=== PATIENT | male | born 1975 | race Caucasian/White ===

== ENCOUNTER 2017-07-05 10:41 | Day surgery (SDC) | payer OTHER ==
[2017-07-04 12:22] VITALS: BMI 25.7
[2017-07-05] MEDS ORDERED: MIDAZOLAM HCL 2 MG/2 ML SINGLE DOSE VIAL ONE (11:47)
[2017-07-05] MEDS ORDERED: ROCURONIUM BROMIDE 50 MG/5 ML VIAL ONE (11:47)
[2017-07-05] MEDS ORDERED: PROPOFOL 20 ML ONE (11:47)
--- NOTE | 2017-07-05 11:56 | HP ---
Satellite PMH - Chief Complaint History of Present Illness: 41 year old man with ESRD on HD wishes to transition to peritoneal dialysis. No prior abdominal surgery. History Source: Patient Limitations to Obtaining History: No Limitations - Past Medical History Allergies/Adverse Reactions: Allergies Allergy/AdvReac Type Severity Reaction Status Date / Time No Known Allergies Allergy Verified 07/04/17 12:22 Cardiovascular: Yes: HTN Renal/: Yes: Renal Failure, Hemodialysis - Current Medications Current Medications: Home Medications Medication Instructions Recorded Allopurinol [Zyloprim -] 200 mg PO BID 07/04/17 Atorvastatin Ca [Lipitor] 20 mg PO DAILY 07/04/17 B12/Levomefolate Calcium/B-6 1 each PO DAILY 07/04/17 [Foltx Tablet] Calcitriol [Rocaltrol -] 0.25 mcg PO ASDIR 07/04/17 Cholecalciferol (Vitamin D3) 2,000 unit PO DAILY 07/04/17 [Vitamin D] Fenofibrate Nanocrystallized 48 mg PO DAILY 07/04/17 [Tricor] Labetalol HCl [Normodyne -] 400 mg PO BID 07/04/17 Olmesartan Medoxomil [Benicar] 20 mg PO BID 07/04/17 Lamont-3 Fatty Acids/Fish Oil [Fish 1 tab PO DAILY 07/04/17 Oil 1,000 mg Capsule] Patiromer Calcium Sorbitex 25.2 gm PO BID 07/04/17 [Veltassa] Sevelamer Carbonate [Renvela] 2,400 mg PO CM 07/04/17 Sodium Bicarbonate 1,950 mg PO TID 07/04/17 Satellite Physical Exam - Physical Examination Vital Signs: Vital Signs Period Temp Pulse Resp BP Sys/Gonzalez Pulse Ox Last 24 Hr 98.9 F 78 20 115/60 98 General Appearance: Well Nourished, Well Developed ENT: Clear Lung: Clear to auscultation Heart: Regular rate & rhythm Abdomen: Soft, No tenderness Extremities: No edema, Other (Left arm fistula) Satellite Impression/Plan - Impression/Plan Impression: Renal failure. Operative Procedure: Placement peritoneal dialysis catheter. Laparoscopy. Date to be Performed: 07/05/17
[2017-07-05] MEDS ORDERED: ceFAZolin SODIUM 1 GM VIAL ONE (12:30)
[2017-07-05] MEDS ORDERED: DEXAMETHASONE SOD PHOSPHATE 4 MG/1 ML VIAL ONE (12:50)
[2017-07-05] MEDS ORDERED: NEOSTIGMINE METHYLSULFATE 0.5 MG/ML - 10 ML MDV ONE (13:03)
[2017-07-05] MEDS ORDERED: ACETAMINOPHEN 325 MG TABLET (FP) PO PRN (13:09)
[2017-07-05] MEDS ORDERED: oxyCODONE HCL 5 MG TABLET PO PRN (13:09)
--- NOTE | 2017-07-05 13:09 | OP ---
Operative Note - Note: Operative Date: 07/05/17 Pre-Operative Diagnosis: ESRD on HD Operation: Laparoscopy, Placement Peritoneal Dialysis Catheter Findings: No intra-abdominal adhesions Implants: [place] neck right, curled double cuff Tenckhoff catheter Post-Operative Diagnosis: Same as Pre-op Surgeon: Jaime Frances Anesthesiologist/ELECTRIC ENGINE MECHANIC: Dillan Brewster Anesthesia: General Estimated Blood Loss (mls): 0 Operative Report Dictated: Yes
[2017-07-05] MEDS ORDERED: ONDANSETRON 4 MG/2 ML VIAL ONE (13:16)
[2017-07-05] MEDS ORDERED: ONDANSETRON 4 MG/2 ML VIAL IVPUSH PRN (13:23)
[2017-07-05] MEDS ORDERED: PROMETHAZINE HCL 25 MG/1 ML VIAL IVPB PRN (13:23)
[2017-07-05] MEDS ORDERED: SODIUM CHLORIDE 1,000 ML IV SCH (13:30)
[2017-07-05 16:36] VITALS: TEMP 97.8
[2017-07-05 16:45] VITALS: BP 130/78; PULSE 67
--- NOTE | 2017-07-06 07:12 | OP ---
DATE OF OPERATION: 07/05/2017 SURGEON: Jaime Posada MD PROCEDURE: Laparoscopy with placement of peritoneal dialysis catheter. PREOPERATIVE DIAGNOSIS: End-stage renal disease. POSTOPERATIVE DIAGNOSIS: End-stage renal disease. ANESTHESIA: General. ANESTHESIOLOGIST: Dillan Brewster MD OPERATIVE FINDINGS: The peritoneal cavity was free of intraabdominal adhesions. OPERATIVE PROCEDURE: Following routine patient identification with site and side verification, general anesthesia was induced. The abdomen was prepped with ChloraPrep. Time-out was performed. A Veress needle was inserted atraumatically through the umbilicus into the peritoneal cavity, and pneumoperitoneum was established with carbon dioxide to 15 mmHg pressure. Marcaine 0.5% was infiltrated in the midline above the umbilicus, and a 5-mm incision made. A 5-mm OptiPort was placed under direct vision into the peritoneal cavity. A 5-mm angled laparoscope was then used to explore the abdomen as noted above. Additional Marcaine was infiltrated above and to the left of the umbilicus, and an 8-mm incision made. An 8-mm bladeless trocar was then advanced to the underside of the parietal peritoneum, and then directed towards the pelvis where it entered the peritoneal cavity at the top of the true pelvis. A curled swan-neck double-cuff takeoff catheter was then straightened and passed through the 8-mm port and deployed into the pelvis. The port was removed. The inner cuff was left just deep to the fascia. The other end of the tubing was attached to a curved metal tunneler, which was passed into subcutaneous plane to exit the skin in the right lower quadrant at the previously marked site. The Luer-Omi adapter was attached, and 1 L of saline was run into the peritoneal cavity under gravity drainage in 3 minutes and 15 seconds. The fluid was then allowed to drain out under gravity until only 300 mL was left in the peritoneal cavity. The catheter was capped. All ports were removed. The wounds were closed subcutaneous sutures of 3-0 Vicryl and subcuticular sutures of 4-0 Biosyn on the skin. Sterile dressings were applied with Dermabond glue. The catheter was dressed with a Biopatch Bioclusive dressing and ABD pad. The patient was then taken to the recovery room in stable condition. JAIME POSADA M.D. [id number]
== END 2017-07-05 16:05 | disposition home or self-care (01) ==
LOC: JASU-SURG 10:41
PROVIDERS: ATTEND Surgery
PROC: 0WHG43Z Insertion of Infusion Device into Peritoneal Cavity, Percutaneous Endoscopic Approach (ICD-10-PCS; principal; 2017-07-05 12:00)
DX: I12.0 Hypertensive chronic kidney disease with stage 5 chronic kidney disease or end stage renal disease (principal); N18.6 End stage renal disease; Z99.2 Dependence on renal dialysis
CPT/HCPCS: 94760